=== PATIENT | male | born 1945 | race Caucasian/White ===

== ENCOUNTER 2024-05-16 08:56 | Observation (INO) | payer MEDICARE ==
[2024-05-16] VITALS (16 sets, daily range): BP systolic 99–145; BP diastolic 59–87
[~2024-05-16] VITALS: Ht 177.8 cm; Wt 104.9 kg
[~2024-05-16 08:56] MED LIST: ALLO300 PO; AMOCLA875 PO; ARMODAFINIL150 MG PO; ATOR40TA PO; B-121000 MC3 PO; DABI150C PO; DULO60 PO; ENTRESTO 97 MG1 EACH PO; FINA5 PO; JARDIANCE25 MG PO; LIDO700A20 TOP; LIDOCAINE1 EAC1 TOP; METO100ER PO; MULVITA PO; OMEP20ER PO; PRESERVISION A1 EAC1 PO; Robaxin750 MG PO; SINEMET 25-1001 EAC1 PO; SPIR25 PO; TAMS.4ER PO; Vitamin D1000 UNI1 PO
[2024-05-16] MEDS ORDERED: NS 1,000 ML IV SCH (09:15)
[2024-05-16] MEDS ORDERED: FentaNYL Citrate 50 MCG/ML 2 ML Injection IV PRN (09:15)
[2024-05-16] MEDS ORDERED: HYDROmorphone HCl/Pf 1MG SYR IV ONE ×2 (09:30→10:40)
[2024-05-16] MEDS ORDERED: Ondansetron HCl 2 MG / ML 2ML Vial ONE (09:44)
[2024-05-16] MEDS ORDERED: Ondansetron HCl 2 MG / ML 2ML Vial IV ONE (09:45)
[2024-05-16] MEDS ORDERED: Propofol 10mg/ml 20 ml Vial (Procedural) IV SCH (10:20)
[2024-05-16] MEDS ORDERED: Lactated Ringer's 1,000 ML IV ONE (12:36)
[2024-05-16 12:45] LABS: BASOPHILS ABSOLUTE AUTO 0.05 K/mm3 (0.00-0.23); BASOPHILS PERCENT AUTO 0 % (0-2); EOSINOPHILS ABSOLUTE AUTO 0.01 K/mm3 (0.00-0.68); EOSINOPHILS PERCENT AUTO 0 % (0-6); Hematocrit 46.4 % (37.0-53.0); Hemoglobin 15.1 g/dL (13.5-17.5); IMMATURE GRAN ABSOLUTE AUTO 0.09 K/mm3 (0.00-0.10); IMMATURE GRAN PERCENT AUTO 1 % (0-1); LYMPHOCYTES PERCENT AUTO 9 % (21-46); MONOCYTES ABSOLUTE AUTO 0.79 K/mm3 (0.16-1.47); MONOCYTES PERCENT AUTO 5 % (4-13); Mean Corpuscular HGB 32.1 pg (26.0-34.0); Mean Corpuscular HGB Conc 32.5 g/dL (31.5-36.5); Mean Corpuscular Volume 99 fL (80-100); NEUTROPHILS ABSOLUTE AUTO 13.51 K/mm3 (1.96-9.15); NEUTROPHILS PERCENT AUTO 85 % (41-73); Platelet Count 162 K/mm3 (150-400); RDW Coefficient Variation 13.2 % (11.7-14.2); RDW Standard Deviation 47.8 fL (35.1-46.3); Red Blood Cell Count 4.71 M/mm3 (4.30-5.90); White Blood Cell Count 15.95 K/mm3 (4.00-11.30)
[2024-05-16 12:58] LABS: International Normalized Ratio 1.11; Prothrombin Time Results 11.8 Sec (9.7-11.5)
[2024-05-16 13:06] LABS: Albumin, Blood 3.5 g/dL (3.4-5.0); Albumin/Globulin Ratio 1.1 (0.8-1.8); Bilirubin, Total 1.1 mg/dL (0.1-1.0); Bun/Creatinine Ratio 19.2 (12.0-20.0); Calcium, Blood 8.8 mg/dL (8.5-10.1); Creatinine, Blood 0.94 mg/dL (0.60-1.20); Globulin, Blood 3.2 g/dL (2.2-4.0); Potassium, Blood 3.3 mmol/L (3.5-5.5); Total Protein, Blood 6.7 g/dL (6.4-8.2)
--- NOTE | 2024-05-16 14:17 | NUR ---
ARRIVAL TO UNIT PT ARRIVED TO UNIT FROM ER VIA GURNEY. R ARM IN SLING. DARKER IN COLOR BENEATH ELBOW. PT ENDORSES NUMBNESS AND INABILITY TO MOVE FINGERS OR HAND. SLIGHT SENSATION ON HAND AND INCREASING PALPATION DONE UP THE ARM. HAND IS WARM TO TOUCH. CAP REFILL SLOW. PT ABLE TO HELP WITH REPOSITIONING. ARM PLACED ON PILLOW TO PATIENTS COMFORT. REMAINS ON 3L NASAL CANULA, SATS AT 94%. PRE OP WIPE DOWN DONE. CAREGIVER AT BEDSIDE. CALL LIGHT PROVIDED. PLAN IS FOR PATIENT TO GO TO THE OR TODAY.
--- NOTE | 2024-05-16 14:38 | NUR ---
PT TO PROCEDURE AT THIS TIME.
--- NOTE | 2024-05-16 14:53 | NUR ---
PT ARRIVES TO PACU VIA BED FOR PREOP CARE AT 1450. CAREGIVERS x2 AT BEDSIDE. BOTH ATTENTIVE & LOVING. SURGICAL PACK COMPLET. AFEBRILE/VSS. SURGICAL HAT/PAS SLEEVES/BP CUFF PLACED. WARM BLANKETS PLACED. LR AT TKO.
[2024-05-16] MEDS ORDERED: Rocuronium Bromide 10 MG/ML 5ML Injection IV ONE (15:41)
[2024-05-16] MEDS ORDERED: Lidocaine HCl 2% 20 ML MDV ONE (15:41)
[2024-05-16] MEDS ORDERED: propofoL 20 ML IV ONE (15:44)
[2024-05-16] MEDS ORDERED: Phenylephrine HCl 100 MCG/ML-NS 10MLSYR (1MG/10ML) ONE (15:44)
--- NOTE | 2024-05-16 15:46 | NUR ---
05/16/24 1546 Dona Gregory NO PREP NEEDED FOR CLOSED REDUCTION PROCEDURE. NO COUNTS NEEDED, NO ITEMS OPENED.
[2024-05-16] MEDS ORDERED: Sugammadex Sodium 200 MG/2ML SDV (100 MG/ML) ONE (16:02)
[2024-05-16] MEDS ORDERED: TraMADol HCl 50 MG Tab PO PRN (16:25)
--- NOTE | 2024-05-16 17:35 | NUR ---
PT BACK FROM PACU AT THIS TIME. CLOSED REDUCTION OF R SHOULDER UNDER SEDATION. PT ON 3L NASAL CANULA, SATURATION 94%. DENIES SOB. ABLE TO WIGGLE FINGERS AND HAND BUT UNABLE TO FEEL IT MOVE. LOWER ARM IS PINK IN COLOR AND WARM TO TOUCH. PT STATES HE FEELS SIGNIFICANTLY BETTER AFTER PROCEDURE. CURRENTLY SITTING UP IN BED, DRINKING WATER AND EATING JELLO. FAMILY AT BEDSIDE.
[2024-05-16] MEDS ORDERED: Potassium Chloride 20 MEQ TabCR PO ONE (20:00)
[2024-05-16] MEDS ORDERED: Magnesium Hydroxide Conc 10 ML UDC PO PRN (20:05)
[2024-05-16] MEDS ORDERED: Bisacodyl 10 MG Supp PR PRN (20:10)
[2024-05-16] MEDS ORDERED: Acetaminophen 325 MG TABLET PO PRN (20:10)
[2024-05-16] MEDS ORDERED: Levodopa/Carbidopa 100/25 MG Tab *CR PO SCH (21:00)
[2024-05-16] MEDS ORDERED: Sacubitril/Valsartan 97 mg-103 mg Tab PO SCH (21:00)
[2024-05-16] MEDS ORDERED: Tamsulosin HCl 0.4 MG Cap PO SCH (21:00)
[2024-05-16] MEDS ORDERED: Metoprolol Succinate 50 MG TABCR PO SCH (21:00)
[2024-05-16] MEDS ORDERED: Sennosides 8.6 MG Tab PO SCH (21:00)
[2024-05-16] MEDS ORDERED: Docusate Sodium 100 MG Cap PO SCH (21:00)
[2024-05-16] MEDS ORDERED: Rivaroxaban 10 MG Tab PO SCH (22:00)
--- NOTE | 2024-05-16 22:00 | NUR ---
THIS RN RECIEVED CALL AROUND [address] MONTAGUE REGARDING LAST DOSE OF PT'S PRADAXA. PT STATED AT THIS TIME THAT HE HAD NOT TAKEN THIS MED TODAY. INFORMED DR. MONTAGUE WHO THEN ORDERED XARELTO TO BE GIVEN THIS PM. ADMINISTERED XARELTO. WHILE REVIEWING PT'S MED REC, PT THEN CLAIMED HE HAD TAKEN A DOSE OF PRADAXA AT 0800 05/16. NOTIFIED DEBRA NAYLOR AT THIS TIME THAT PT HAD TAKEN PRADAXA THIS AM AND THEN WAS GIVEN XARELTO THIS PM. DEBRA NAYLOR STATES "THAT'S OK THEY WERE GIVEN MORE THAN 12 HRS APART". NO FURTHER ORDERS RECIEVED.
[2024-05-16] MEDS ORDERED: OMEP20ER PO (22:40)
[2024-05-17] VITALS (10 sets, daily range): BP systolic 74–119; BP diastolic 50–96
[2024-05-17 04:32] LABS: BASOPHILS ABSOLUTE AUTO 0.04 K/mm3 (0.00-0.23); BASOPHILS PERCENT AUTO 0 % (0-2); EOSINOPHILS ABSOLUTE AUTO 0.07 K/mm3 (0.00-0.68); EOSINOPHILS PERCENT AUTO 1 % (0-6); Hematocrit 42.7 % (37.0-53.0); IMMATURE GRAN ABSOLUTE AUTO 0.05 K/mm3 (0.00-0.10); IMMATURE GRAN PERCENT AUTO 0 % (0-1); LYMPHOCYTES ABSOLUTE AUTO 2.49 K/mm3 (0.84-5.20); LYMPHOCYTES PERCENT AUTO 20 % (21-46); MONOCYTES ABSOLUTE AUTO 1.31 K/mm3 (0.16-1.47); MONOCYTES PERCENT AUTO 10 % (4-13); Mean Corpuscular HGB 32.2 pg (26.0-34.0); Mean Corpuscular HGB Conc 32.8 g/dL (31.5-36.5); Mean Corpuscular Volume 98 fL (80-100); Mean Platelet Volume 10.3 fL (9.1-12.4); NEUTROPHILS ABSOLUTE AUTO 8.71 K/mm3 (1.96-9.15); NEUTROPHILS PERCENT AUTO 69 % (41-73); Platelet Count 211 K/mm3 (150-400); RDW Coefficient Variation 13.3 % (11.7-14.2); RDW Standard Deviation 47.9 fL (35.1-46.3); Red Blood Cell Count 4.35 M/mm3 (4.30-5.90); White Blood Cell Count 12.67 K/mm3 (4.00-11.30)
[2024-05-17 04:52] LABS: Albumin, Blood 3.2 g/dL (3.4-5.0); Bilirubin, Total 1.2 mg/dL (0.1-1.0); Bun/Creatinine Ratio 21.7 (12.0-20.0); Calcium, Blood 8.6 mg/dL (8.5-10.1); Creatinine, Blood 0.92 mg/dL (0.60-1.20); Globulin, Blood 3.2 g/dL (2.2-4.0); Magnesium, Blood 2.1 mg/dL (1.6-2.4); Phosphorus, Blood 3.1 mg/dL (2.5-4.9); Potassium, Blood 4.4 mmol/L (3.5-5.5); Total Protein, Blood 6.4 g/dL (6.4-8.2)
--- NOTE | 2024-05-17 05:38 | NUR ---
SHIFT SUMMARY PT IS POD1 FOR A CLOSED REDUCTION OF R HUMERUS. ARM IMMOBILIZER IN PLACE. PT ABLE TO WIGGLE R FINGERS, CAP REFILL <3 SECS, HAND WARM TO TOUCH. PT DOES STILL REPORT SOME NUMBNESS IN R HAND. VSS. PT VOIDING W/ URINAL. 02 SATS >95% ON 1L NC. USING CALL LIGHT APPROPRIATELY.
[2024-05-17] MEDS ORDERED: Omeprazole 20 MG CapCR PO SCH (06:00)
[2024-05-17] MEDS ORDERED: Insulin Regular 100 UNIT/ML 10ML Vial SC SCH (07:30)
--- NOTE | 2024-05-17 07:41 | NUR ---
PT REPORTS INCREASED NUMBNESS TO R EXTREMITY, STATES HE "CANNOT FEEL HIS HAND". CHARGE NURSE EVALUATED PT AFTER THIS RN, PT NOW STATES HE DOES HAVE SENSATION IN HAND AND IS ABLE TO WIGGLE FINGERS. RADIAL PULSE STRONG AND PALPABLE, FINGERS WARM TO TOUCH, NO SIGNIFICANT CHANGE NOTED IN PT STATUS AT THIS TIME. PT REQUESTING SLING AND ICE PACK BE REMOVED, ARM CURRENTLY RESTING ON PILLOW.
[2024-05-17] MEDS ORDERED: Finasteride 5 MG Tab PO SCH (09:00)
[2024-05-17] MEDS ORDERED: Spironolactone 25 MG Tab PO SCH (09:00)
[2024-05-17] MEDS ORDERED: Allopurinol 300 MG Tab PO SCH (09:00)
[2024-05-17] MEDS ORDERED: DULoxetine HCL 60 MG Capsule DR PO SCH (09:00)
[2024-05-17] MEDS ORDERED: Atorvastatin 40 MG Tab PO SCH (09:00)
[2024-05-17] MEDS ORDERED: Enoxaparin 40 MG/0.4 ML SYR SC SCH (09:00)
[2024-05-17] MEDS ORDERED: Cyanocobalamin 500 MCG Tab PO SCH (09:00)
[2024-05-17] MEDS ORDERED: Cholecalciferol 1000 Unit Tablet (=25MCG) PO SCH (09:00)
[2024-05-17] MEDS ORDERED: NS 500 ML IV ONE (09:13)
[2024-05-17] MEDS ORDERED: NS 250 ML IV SCH (09:15)
[2024-05-17] MEDS ORDERED: NS 250 ML IV ONE (09:17)
[2024-05-17 13:06] LABS: Source, Urine Clean Catch
[2024-05-17 13:13] LABS: Appearance, Urine Hazy (Clear); Bilirubin, Urine Neg (Neg); Blood, Urine 2+ (Neg); Color, Urine Yellow (P-Yellow); Glucose Qualitative, Urine Neg (Neg); Ketones, Urine 1+ (Neg); Leukocyte Esterase, Urine 1+ (Neg); Nitrite, Urine Neg (Neg); Protein, Urine 1+ (Neg); Urobilinogen, Urine 1+ (Normal)
[2024-05-17 14:06] LABS: Hyaline Casts 0-2 /lpf (0-2)
[2024-05-17 14:08] LABS: Bacteria Few /hpf; Calcium Oxalate Crystals Few /hpf; Mucus Light (0-Heavy); Squamous Epithelial Cells Rare /hpf (Few)
[2024-05-17] MEDS ORDERED: CefTRIAXone Sodium 1,000 MG in NS 100 ML IV ONE (15:00)
[2024-05-18 04:54] VITALS: BP 109/57
--- NOTE | 2024-05-18 04:56 | NUR ---
SHIFT SUMMARY KATY WAS ALERT AND FULLY ORIENTED ON ASSESSMENT. PT DENIES PAIN T/O THE NIGHT. PT ABLE TO STAND AND XFER WITH USE OF DIANA WALKER GB AND 1P ASSIST. IMMOBILIZER KEPT IN PLACE. NO ACUTE EVENTS OR CHANGES TO PT CONDITION T/O NIGHT. METOPROLOL HELD D/T SOFT BP, SINUS ON TELE. PT STILL HAVING NUMBNESS TO L HAND PULSES INTACT.
[2024-05-18 05:05] LABS: BASOPHILS ABSOLUTE AUTO 0.05 K/mm3 (0.00-0.23); BASOPHILS PERCENT AUTO 1 % (0-2); EOSINOPHILS ABSOLUTE AUTO 0.16 K/mm3 (0.00-0.68); EOSINOPHILS PERCENT AUTO 2 % (0-6); Hematocrit 36.1 % (37.0-53.0); Hemoglobin 11.7 g/dL (13.5-17.5); IMMATURE GRAN ABSOLUTE AUTO 0.07 K/mm3 (0.00-0.10); IMMATURE GRAN PERCENT AUTO 1 % (0-1); LYMPHOCYTES ABSOLUTE AUTO 2.86 K/mm3 (0.84-5.20); LYMPHOCYTES PERCENT AUTO 28 % (21-46); MONOCYTES ABSOLUTE AUTO 1.55 K/mm3 (0.16-1.47); MONOCYTES PERCENT AUTO 15 % (4-13); Mean Corpuscular HGB 32.2 pg (26.0-34.0); Mean Corpuscular HGB Conc 32.4 g/dL (31.5-36.5); Mean Corpuscular Volume 99 fL (80-100); Mean Platelet Volume 10.4 fL (9.1-12.4); NEUTROPHILS ABSOLUTE AUTO 5.66 K/mm3 (1.96-9.15); NEUTROPHILS PERCENT AUTO 55 % (41-73); Platelet Count 161 K/mm3 (150-400); RDW Coefficient Variation 13.6 % (11.7-14.2); RDW Standard Deviation 49.6 fL (35.1-46.3); Red Blood Cell Count 3.63 M/mm3 (4.30-5.90); White Blood Cell Count 10.35 K/mm3 (4.00-11.30)
[2024-05-18 06:11] LABS: Bun/Creatinine Ratio 22.5 (12.0-20.0); Calcium, Blood 8.5 mg/dL (8.5-10.1); Creatinine, Blood 0.93 mg/dL (0.60-1.20); Potassium, Blood 4.4 mmol/L (3.5-5.5)
[2024-05-18 07:46] VITALS: BP 103/62
[2024-05-18] MEDS ORDERED: TRAM50 PO (11:41)
--- NOTE | 2024-05-18 12:00 | NUR ---
DISCHARGE SUMMARY S/P R SHOULDER DISLOCATION REDUCTION, A/OX4, VSS, TOLERATING PO, PAIN WELL MANAGED, WORKED WITH OT AND WAS CLEARED FOR DSICHARGE, SHOULDER IMMOBILIZER ON AND IN PLACE, EXTENSIVE ECCYMOSIS R INFERIOR SHOULDER/PROXIMAL R ARM. IV ACCESS REMVOED BY THIS RN WHILE DISCUSSING DC INSTRUCTIONS. DISCUSSED DISCHARGE INSTRUCTIONS INCLUDING HOME CARE, MEDICATIONS, AND FOLLOW UP APPOINTMENTS. ALL QUESTIONS ANSWERED AT THIS TIME. ASSISTED INTO A WC TO GO HOME VIA PRIVATE AUTO.
== END 2024-05-18 12:00 | disposition home or self-care (01) ==
LOC: ER 08:56 → SURS 08:57
PROVIDERS: Family Medicine; Internal Medicine; Student in an Organized Health Care Education/Training Program; ADMIT Orthopaedic Surgery
PROC: 0PSCXZZ Reposition Right Humeral Head, External Approach (ICD-10-PCS; principal; 2024-05-16 20:45)
DX: S42.141A Displaced fracture of glenoid cavity of scapula, right shoulder, initial encounter for closed fracture (principal); S43.004A Unspecified dislocation of right shoulder joint, initial encounter; G20.A1 Parkinson's disease without dyskinesia, without mention of fluctuations; I11.0 Hypertensive heart disease with heart failure; I50.22 Chronic systolic (congestive) heart failure; G47.30 Sleep apnea, unspecified; K21.9 Gastro-esophageal reflux disease without esophagitis; I48.0 Paroxysmal atrial fibrillation; R73.03 Prediabetes; E78.5 Hyperlipidemia, unspecified; N40.0 Benign prostatic hyperplasia without lower urinary tract symptoms; Z88.8 Allergy status to other drugs, medicaments and biological substances; Z79.899 Other long term (current) drug therapy; W18.30XA Fall on same level, unspecified, initial encounter
CPT/HCPCS: 36415; 73030; 80048; 80053; 81001; 82947; 83735; 84100; 85025; 85610; 85730; 86850; 86900; 86901; 87086; 97110; 97165; 97535; A9270; J0696; J1170; J2371; J2405; J2704; J3010; J7030; J7040; J7050; J7120

== ENCOUNTER 2024-05-23 11:34 | Emergency (ER) | payer MEDICARE ==
[~2024-05-23] VITALS: Ht 177.8 cm; Wt 99.8 kg
[~2024-05-23 11:34] MED LIST changes: +TRAM50 PO
[2024-05-23 12:31] VITALS: BP 101/60
== END 2024-05-23 14:25 | disposition home or self-care (01) ==
LOC: ER 11:34
DX: S40.021A Contusion of right upper arm, initial encounter (principal); X58.XXXA Exposure to other specified factors, initial encounter; Z88.7 Allergy status to serum and vaccine; Z91.048 Other nonmedicinal substance allergy status; Z79.899 Other long term (current) drug therapy; Z88.8 Allergy status to other drugs, medicaments and biological substances; I50.9 Heart failure, unspecified
CPT/HCPCS: 93971

== ENCOUNTER → 2024-05-31 | Outpatient (CLI) | payer MEDICARE ==
[~2024-05-31] MED LIST changes: +BUME1 PO; +CEFP200 PO; +CYCL10 PO; +METO50 PO; +SULTRIDS PO; +Tessalon200 MG PO
[2024-05-31 18:49] LABS: Source, Urine Straight Cath
[2024-05-31 19:04] LABS: Bacteria Not Seen /hpf; Squamous Epithelial Cells Few /hpf (Few); White Blood Cells, Urine 0-2 /hpf (0-5)
== END | disposition home or self-care (01) ==
LOC: LAB SHORT 18:47 → LAB 18:47
PROVIDERS: Internal Medicine
DX: R31.9 Hematuria, unspecified (principal)
CPT/HCPCS: 81015; 87086

== ENCOUNTER 2024-06-02 10:53 | Emergency (ER) | payer MEDICARE ==
[~2024-06-02] VITALS: Ht 177.8 cm; Wt 98.4 kg
[~2024-06-02 10:53] MED LIST changes: -BUME1 PO; -CEFP200 PO; -CYCL10 PO; -METO50 PO; -SULTRIDS PO; -Tessalon200 MG PO
[2024-06-02] MEDS ORDERED: BUME1 PO (11:11)
[2024-06-02] MEDS ORDERED: Tessalon200 MG PO (11:11)
[2024-06-02] MEDS ORDERED: DULO60 PO (11:13)
[2024-06-02] MEDS ORDERED: METO50 PO (11:16)
[2024-06-02 13:43] LABS: Appearance, Urine Bloody (Clear); Bilirubin, Urine Neg (Neg); Blood, Urine 5+ (Neg); Color, Urine Brown (P-Yellow); Glucose Qualitative, Urine Neg (Neg); Ketones, Urine 1+ (Neg); Protein, Urine 3+ (Neg); Source, Urine Foley catheter; Specific Gravity, Urine 1.025 (1.003-1.022); Urobilinogen, Urine 2+ (Normal)
[2024-06-02 13:46] LABS: Leukocyte Esterase, Urine 2+ (Neg); Nitrite, Urine Pos (Neg)
[2024-06-02 13:52] LABS: Amorphous Light (0-Heavy); Bacteria Many /hpf; Calcium Oxalate Crystals Rare /hpf; Mucus Light (0-Heavy); Red Blood Cells, Urine TNTC /hpf (0-2); Squamous Epithelial Cells Rare /hpf (Few)
[2024-06-02] MEDS ORDERED: CEFP200 PO (13:59)
[2024-06-02 14:30] VITALS: BP 117/86
== END 2024-06-02 14:54 | disposition home or self-care (01) ==
LOC: ER 10:53
PROVIDERS: Emergency Medicine
DX: N39.0 Urinary tract infection, site not specified (principal); R31.9 Hematuria, unspecified; Z79.899 Other long term (current) drug therapy; Z88.7 Allergy status to serum and vaccine; Z88.8 Allergy status to other drugs, medicaments and biological substances; Z91.048 Other nonmedicinal substance allergy status
CPT/HCPCS: 81001; 87086; 99283

== ENCOUNTER 2024-06-06 16:04 | Emergency (ER) | payer MEDICARE ==
[~2024-06-06] VITALS: Ht 177.8 cm; Wt 98.4 kg
[~2024-06-06 16:04] MED LIST changes: +BUME1 PO; +CEFP200 PO; +METO50 PO; +Tessalon200 MG PO
[2024-06-06] MEDS ORDERED: NS 1,000 ML IV SCH (17:05)
[2024-06-06 17:33] LABS: BASOPHILS ABSOLUTE AUTO 0.03 K/mm3 (0.00-0.23); BASOPHILS PERCENT AUTO 1 % (0-2); EOSINOPHILS ABSOLUTE AUTO 0.13 K/mm3 (0.00-0.68); EOSINOPHILS PERCENT AUTO 2 % (0-6); Hematocrit 37.5 % (37.0-53.0); Hemoglobin 12.1 g/dL (13.5-17.5); IMMATURE GRAN ABSOLUTE AUTO 0.04 K/mm3 (0.00-0.10); IMMATURE GRAN PERCENT AUTO 1 % (0-1); LYMPHOCYTES ABSOLUTE AUTO 1.77 K/mm3 (0.84-5.20); LYMPHOCYTES PERCENT AUTO 28 % (21-46); MONOCYTES ABSOLUTE AUTO 0.52 K/mm3 (0.16-1.47); MONOCYTES PERCENT AUTO 8 % (4-13); Mean Corpuscular HGB 31.9 pg (26.0-34.0); Mean Corpuscular HGB Conc 32.3 g/dL (31.5-36.5); Mean Corpuscular Volume 99 fL (80-100); Mean Platelet Volume 9.4 fL (9.1-12.4); NEUTROPHILS ABSOLUTE AUTO 3.79 K/mm3 (1.96-9.15); NEUTROPHILS PERCENT AUTO 60 % (41-73); Platelet Count 357 K/mm3 (150-400); RDW Coefficient Variation 14.1 % (11.7-14.2); RDW Standard Deviation 51.2 fL (35.1-46.3); Red Blood Cell Count 3.79 M/mm3 (4.30-5.90); White Blood Cell Count 6.28 K/mm3 (4.00-11.30)
[2024-06-06 17:53] LABS: Albumin, Blood 2.7 g/dL (3.4-5.0); Albumin/Globulin Ratio 0.9 (0.8-1.8); Bilirubin, Total 0.7 mg/dL (0.1-1.0); Bun/Creatinine Ratio 20.6 (12.0-20.0); Calcium, Blood 8.1 mg/dL (8.5-10.1); Creatinine, Blood 0.83 mg/dL (0.60-1.20); Globulin, Blood 3.1 g/dL (2.2-4.0); Potassium, Blood 3.8 mmol/L (3.5-5.5); Total Protein, Blood 5.8 g/dL (6.4-8.2)
[2024-06-06 18:04] LABS: Source, Urine Foley catheter
[2024-06-06 18:16] LABS: Appearance, Urine Cloudy (Clear); Bilirubin, Urine Neg (Neg); Blood, Urine 5+ (Neg); Color, Urine Brown (P-Yellow); Glucose Qualitative, Urine Neg (Neg); Ketones, Urine 2+ (Neg); Leukocyte Esterase, Urine 2+ (Neg); Nitrite, Urine Pos (Neg); Protein, Urine 3+ (Neg); Specific Gravity, Urine 1.025 (1.003-1.022); Urobilinogen, Urine 1+ (Normal)
[2024-06-06 18:23] LABS: Red Blood Cells, Urine TNTC /hpf (0-2)
[2024-06-06 18:24] LABS: Bacteria Mod /hpf; Calcium Oxalate Crystals Many /hpf; Squamous Epithelial Cells Not Seen /hpf (Few)
[2024-06-06] MEDS ORDERED: SULTRIDS PO (19:39)
[2024-06-06 19:50] VITALS: BP 166/87
[2024-06-06] MEDS ORDERED: CYCL10 PO (20:03)
== END 2024-06-06 19:55 | disposition home or self-care (01) ==
LOC: ER 16:04
PROVIDERS: Student in an Organized Health Care Education/Training Program
DX: N39.0 Urinary tract infection, site not specified (principal); M54.50 Low back pain, unspecified; Z88.7 Allergy status to serum and vaccine; Z88.8 Allergy status to other drugs, medicaments and biological substances; Z91.048 Other nonmedicinal substance allergy status; Z79.899 Other long term (current) drug therapy; I50.9 Heart failure, unspecified
CPT/HCPCS: 51702; 80053; 81001; 85025; 87086; 96360-59; 99283-25; J7030

== ENCOUNTER → 2024-06-30 | Outpatient (CLI) | payer MEDICARE ==
[~2024-06-30] MED LIST changes: +CYCL10 PO; +SULTRIDS PO
[2024-06-30 17:25] LABS: Appearance, Urine Bloody (Clear); Bilirubin, Urine Neg (Neg); Blood, Urine 5+ (Neg); Color, Urine Red (P-Yellow); Glucose Qualitative, Urine Neg (Neg); Ketones, Urine Neg (Neg); Leukocyte Esterase, Urine 1+ (Neg); Nitrite, Urine Neg (Neg); Protein, Urine 4+ (Neg); Urobilinogen, Urine NORM (Normal)
[2024-06-30 17:34] LABS: Red Blood Cells, Urine TNTC /hpf (0-2); White Blood Cells, Urine 0-2 /hpf (0-5)
[2024-06-30 17:35] LABS: Bacteria Few /hpf; Squamous Epithelial Cells Not Seen /hpf (Few); Transitional Epithelial Cells Rare /hpf (0-Rare)
== END | disposition home or self-care (01) ==
LOC: LAB 16:11 → LAB SHORT 16:11 → LAB FUT 06-30 13:00
PROVIDERS: Urology
DX: N39.0 Urinary tract infection, site not specified (principal)
CPT/HCPCS: 81001; 87086